=== PATIENT | male | born 1995 | race Caucasian/White ===

== ENCOUNTER 2024-08-25 14:38 | Outpatient (CLI) | payer BC | END 2024-08-25 14:39 | disposition home or self-care (01) | LOC: CSHULT 14:38 | PROVIDERS: ATTEND Student in an Organized Health Care Education/Training Program | DX: I10 Essential (primary) hypertension (principal); Z86.79 Personal history of other diseases of the circulatory system; I35.1 Nonrheumatic aortic (valve) insufficiency | CPT/HCPCS: 93306 ==